=== PATIENT | male | born 2005 | race Two or more races ===

== ENCOUNTER 2025-02-11 16:33 | Emergency (ER) | payer MEDICAID ==
[~2025-02-11] VITALS: Ht 165.1 cm; Wt 83.9 kg
[2025-02-11 16:56] VITALS: BP 112/77; TEMP 97.8
[2025-02-11 19:22] VITALS: O2SAT 98
== END 2025-02-11 19:22 | disposition home or self-care (01) ==
LOC: ER 16:33
DX: M25.571 Pain in right ankle and joints of right foot (principal)
CPT/HCPCS: 73610-TC

== ENCOUNTER 2025-03-28 14:26 | Emergency (ER) | payer MEDICAID ==
[~2025-03-28] VITALS: Ht 167.6 cm; Wt 81.6 kg
[2025-03-28 14:35] VITALS: BP 121/67; TEMP 98.2
[2025-03-28 16:03] VITALS: O2SAT 98
== END 2025-03-28 16:03 | disposition home or self-care (01) ==
LOC: ER 14:30
DX: M25.571 Pain in right ankle and joints of right foot (principal); Z98.890 Other specified postprocedural states
CPT/HCPCS: 73610-TC